=== PATIENT | female | born 1940 | race Caucasian/White ===

== ENCOUNTER 2016-11-15 06:37 | Day surgery (SDC) | payer OTHER, MEDICAID ==
[~2016-11-15] VITALS: Ht 147.3 cm; Wt 54.0 kg
[2016-11-15 06:54] VITALS: BP 161/82
[2016-11-15 12:03] VITALS: BP 134/74
== END 2016-11-15 10:15 | disposition home or self-care (01) ==
LOC: DS 06:37 → GI 08:30 → OR 08:30 → GI 08:45 → DS 10:15
PROVIDERS: Internal Medicine
PROC: 0DBK8ZZ Excision of Ascending Colon, Via Natural or Artificial Opening Endoscopic (ICD-10-PCS; 2016-11-15)
PROC: 0DBM8ZZ Excision of Descending Colon, Via Natural or Artificial Opening Endoscopic (ICD-10-PCS; principal; 2016-11-15 08:45)
PROC: 0DBN8ZZ Excision of Sigmoid Colon, Via Natural or Artificial Opening Endoscopic (ICD-10-PCS; 2016-11-15 08:45)
DX: Z12.11 Encounter for screening for malignant neoplasm of colon (principal); D12.4 Benign neoplasm of descending colon; D12.5 Benign neoplasm of sigmoid colon; D12.2 Benign neoplasm of ascending colon; I10 Essential (primary) hypertension; E11.9 Type 2 diabetes mellitus without complications; E78.00 Pure hypercholesterolemia, unspecified; Z80.0 Family history of malignant neoplasm of digestive organs; Z79.82 Long term (current) use of aspirin; Z79.84 Long term (current) use of oral hypoglycemic drugs; K57.90 Diverticulosis of intestine, part unspecified, without perforation or abscess without bleeding
CPT/HCPCS: 45378; 82962; J1200; J1610; J2250; J2310; J3010; J3490